=== PATIENT | male | born 1965 | race Two or more races ===

== ENCOUNTER 2020-04-28 07:56 | Outpatient (CLI) | payer OTHER ==
[~2020-04-28 07:56] MED LIST: ECOTRIN81 MG; GLIMEPIRIDE2 MG; HYZAAR 100/25 T1 TAB; METFORMIN HCL1000 MG; METOPROLOL SUCC50 MG; NORVASC10 MG; ZOCOR20 MG
== END 2020-04-28 07:59 | disposition home or self-care (01) ==
LOC: SONOGRAMA 07:56
PROVIDERS: ATTEND Pathology Anatomic Pathology
DX: E04.2 Nontoxic multinodular goiter (principal)